=== PATIENT | female | born 1995 | race Caucasian/White ===

== ENCOUNTER 2021-04-30 14:28 | Observation (INO) | payer OTHER ==
[~2021-04-30] VITALS: Ht 172.7 cm; Wt 79.4 kg
[2021-04-30 15:45] LABS: HEMOGLOBIN 13.6 gm/dl (12.3-15.3); RED BLOOD COUNT 4.17 M/UL (4.00-5.10); WHITE BLOOD COUNT 8.9 K/UL (4.5-11.0)
[2021-04-30 15:58] LABS: BUN/CREATININE RATIO 11 (0-10)
[2021-04-30 18:28] LABS: HEMOGLOBIN 12.1 gm/dl (12.3-15.3); RED BLOOD COUNT 3.79 M/UL (4.00-5.10); WHITE BLOOD COUNT 9.2 K/UL (4.5-11.0)
[2021-04-30] MEDS ORDERED: IBU600 MG PO (18:30)
[2021-04-30] MEDS ORDERED: HYDROCODON-ACE1 EAC4 PO (18:30)
== END 2021-05-01 00:18 | disposition home or self-care (01) ==
LOC: ER1 14:28 → MED SURG 4 21:13
PROVIDERS: Physician Assistant; ADMIT Obstetrics & Gynecology
DX: O03.4 Incomplete spontaneous abortion without complication (principal); O46.91 Antepartum hemorrhage, unspecified, first trimester; Z3A.11 11 weeks gestation of pregnancy; Z20.822 Contact with and (suspected) exposure to COVID-19
CPT/HCPCS: 76817; 80053; 81001; 84702; 85025; 86850; 86900; 86901; 87086; 96374; 96375; 99285; G0378; J1100; J2001; J2210; J2250; J2270; J2405; J2590; J2704; J2795; J3010; J7070; J7120; U0002

== ENCOUNTER 2022-02-04 15:01 | Inpatient (IN) | payer OTHER ==
[~2022-02-04] VITALS: Ht 172.7 cm; Wt 88.0 kg
[~2022-02-04 15:01] MED LIST: HYDROCODON-ACE1 EAC4 PO; IBU600 MG PO
[2022-02-04 15:38] LABS: HEMOGLOBIN 12.6 gm/dl (12.3-15.3); RED BLOOD COUNT 3.92 M/UL (4.00-5.10); WHITE BLOOD COUNT 13.9 K/UL (4.5-11.0)
[2022-02-04] MEDS ORDERED: PRENATAL TABLE1 EAC1 PO (17:18)
[2022-02-04] MEDS ORDERED: HYDROCODON-ACE1 EAC4 PO (22:00)
[2022-02-04] MEDS ORDERED: IBUPROFEN800 MG PO (22:00)
[2022-02-04] MEDS ORDERED: COLACE 100MG C100 MG PO (22:00)
[2022-02-05 05:12] LABS: HEMOGLOBIN 11.6 gm/dl (12.3-15.3)
== END 2022-02-06 12:08 | disposition home or self-care (01) | DRG 807 ==
LOC: GENOP 15:01 → OB 16:11
PROVIDERS: Obstetrics & Gynecology; ADMIT Obstetrics & Gynecology
PROC: 4A1HXCZ Monitoring of Products of Conception, Cardiac Rate, External Approach (ICD-10-PCS; 2022-02-04)
PROC: 10E0XZZ Delivery of Products of Conception, External Approach (ICD-10-PCS; principal; 2022-02-06)
PROC: 10907ZC Drainage of Amniotic Fluid, Therapeutic from Products of Conception, Via Natural or Artificial Opening (ICD-10-PCS; 2022-02-06)
PROC: 0HQ9XZZ Repair Perineum Skin, External Approach (ICD-10-PCS; 2022-02-06)
DX: O60.14X0 Preterm labor third trimester with preterm delivery third trimester, not applicable or unspecified (principal); Z37.0 Single live birth; Z3A.34 34 weeks gestation of pregnancy; Z20.822 Contact with and (suspected) exposure to COVID-19; Z28.310 Unvaccinated for COVID-19; Z82.0 Family history of epilepsy and other diseases of the nervous system; Z80.9 Family history of malignant neoplasm, unspecified; Z83.3 Family history of diabetes mellitus; Z82.49 Family history of ischemic heart disease and other diseases of the circulatory system; O70.0 First degree perineal laceration during delivery
CPT/HCPCS: 81001; 82800; 85014; 85018; 85025; J2210; J2405; J2590; J7120; U0002